=== PATIENT | male | born 1960 | race Two or more races ===

== ENCOUNTER 2025-05-08 15:53 | Inpatient (IN) | payer MEDICAID, OTHER ==
[~2025-05-08] VITALS: Ht 165.1 cm; Wt 90.4 kg
--- NOTE | 2025-05-08 16:16 | ED.PDOC ---
SOB-HPI HPI Comments 65y M who presents to the ED for chief complaint of flu-like symptoms. Pt states he has been having shortness of breath, cough, body aches, and chills for the past 3x days. Pt denies any sick contacts or changes to diet. Pt in the ED, has noted BP of 148/88 with otherwise stable vitals. Pt in the ED, otherwise denies any other symptoms at this time. Chief Complaint: Flu like Time Seen by MD: 16:11 Reviewed notes: Nurses Notes, Medications, Allergies Information Source: Patient Mode of Arrival: Ambulatory Brought in by: self Severity: Moderate Timing: Days Duration: Since onset Context: At Rest PE Risk Factors: None History of: None Prehospital treatment: None Modifying Factors: Exertion Associated Signs and Symptoms: Cough If cough with SOB: Clear Past Medical History PAST MEDICAL HISTORY: CAD, DM, High Lipids, HTN, Liver, Thyroid Surgical History: Appendectomy, CABG, Tonsillectomy Family History Family History: Reviewed,noncontributory to illness Social History Smoker: Non-Smoker Alcohol: Denies ETOH Use Drugs: Denies Drug Use Lives In: Home Constitutional: reports: chills, weakness; denies: diaphoresis, fatigue, fever, malaise, sweats, others EENTM: reports: nose congestion; denies: blurred vision, double vision, ear bleeding, ear discharge, ear drainage, ear pain, ear ringing, eye pain, eye redness, hearing loss, mouth pain, mouth swelling, nasal discharge, nose bleeding, nose pain, photophobia, tearing, throat pain, throat swelling, voice changes, others Respiratory: reports: cough, shortness of breath Cardiovascular: denies: chest pain, dizzy spells, diaphoresis, Dyspnea on exertion, edema, irregular heart beat, left arm pain, lightheadedness, palpi tations, PND, syncope, others Gastrointestinal: denies: abdomen distended, abdominal pain, blood streaked bowels, constipated, diarrhea, dysphagia, difficulty swallowing, hematemesis, melena, nausea, poor appetite, poor fluid intake, rectal bleeding, rectal pain, vomiting, others Genitourinary: denies: burning, dysuria, flank pain, frequency, hematuria, incontinence, penile discharge, penile sore, pain, testicle pain, testicle swelling, urgency, others Neurological: denies: dizziness, fainting, headache, left sided numbness, left sided weakness, numbness, paresthesia, pre-existing deficit, right sided numbness, right sided weakness, seizure, speech problems, tingling, tremors, weakness, others Musculoskeletal: denies: back pain, gout, joint pain, joint swelling, muscle pain, muscle stiffness, neck pain, others Integumetry: denies: bruises, change in color, change in hair/nails, dryness, laceration, lesions, lumps, rash, wounds, others Allergic/Immunocompromised: denies: Difficulty Healing, Frequent Infections, Hives, Itching, others Hematologic/Lymphatic: denies: anemia, blood clots, easy bleeding, easy bruis ing, swollen glands, others Endocrine: denies: excessive hunger, excessive sweating, excessive thirst, exc essive urination, flushing, intolerance to cold, intolerance to heat, unexplained weight gain, unexplained weight loss, others Psychiatric: denies: anxiety, bipolar disorder, depression, hopeless, panic disorder, schizophrenia, sleepless, suicidal, others All Other Systems: Reviewed and Negative Physical Exam General Appearance: Moderate Distress HEENT: Normal ENT Inspection, Pharynx Normal, TMs Normal Neck: Full Range of Motion, Non-Tender, Normal, Normal Inspection Respiratory: Chest Non-Tender, Lungs Clear, No Accessory Muscle Use, Respiratory Distress Cardiovascular: No Edema, No JVD, No Murmur, No Gallop, Normal Peripheral Pulses, Regular Rate/Rhythm Breast Exam: Deferred Gastrointestinal: No Organomegaly, Non Tender, No Pulsatile Mass, Normal Bowel Sounds, Soft Genitalia: Deferred Pelvic: Deferred Rectal: Deferred Extremities: No calf tenderness, Normal capillary refill, Normal inspection, Normal range of motion, Non-tender, No pedal edema Musculoskeletal : Apperance: Normal Neurologic: Alert, manager nursing II-XII nml as Tested, Motor Weakness, Normal Affect, Normal Mood, No Sensory Deficits Cerebellar Function: Normal Reflexes: Normal Skin: Dry, Normal Color, Warm Lymphatic: No Adenopathy EKG EKG : Pulse Rate (adult): 89 [place]: Normal Cardiac Rhythm: NSR Block: None Hypertrophy: RVH ST: Normal Was a procedure done? Was a procedure done?: No Differential Dx Differential Diagnosis: Bronchitis, COPD, Pneumonia, Respiratory Distress, URI Comments influenza A and B, COVID, X-Ray, Labs, Meds, VS Vital Signs Date Time Temp Pulse Resp B/P (MAP) Pulse Ox O2 Delivery O2 Flow Rate FiO2 05/08/25 16:16 89 05/08/25 16:06 89 05/08/25 15:56 98.7 76 18 148/88 97 98.7 Lab Test 05/08/25 17:26 05/08/25 17:25 05/08/25 16:23 Range/Units Influenza Type A Antigen Pending Influenza Type B Antigen Pending SARS-CoV-2 Antigen (Rapid) Pending White Blood Count 10.3 4.4-10.8 10^3/uL Red Blood Count 5.60 4.5-5.90 10^6/uL Hemoglobin 14.9 13.5-17.5 g/dL Hematocrit 43.2 41.0-53.0 % Mean Corpuscular Volume 77.2 L 80.0-100.0 fL Mean Corpuscular Hemoglobin 26.6 L 28.0-32.0 pg Mean Corpuscular Hemoglobin Concent 34.5 32.0-36.0 g/dL Red Cell Distribution Width 15.1 H 11.8-14.3 % Platelet Count 464 H 140-450 10^3/uL Mean Platelet Volume 6.6 L 6.9-10.8 fL Neutrophils (%) (Auto) 62.3 37.0-80.0 % Lymphocytes (%) (Auto) 27.1 10.0-50.0 % Monocytes (%) (Auto) 9.0 0.0-12.0 % Eosinophils (%) (Auto) 0.6 0.0-7.0 % Basophils (%) (Auto) 1.0 0.0-2.0 % Neutrophils # (Auto) 6.4 1.6-8.6 10 ^3/uL Lymphocytes # (Auto) 2.8 0.4-5.4 10 ^3/uL Monocytes # (Auto) 0.9 0-1.3 10 ^3/uL Eosinophils # (Auto) 0.1 0-0.8 10 ^3/uL Basophils # (Auto) 0.1 0-0.2 10 ^3/uL Nucleated Red Blood Cells 0.1 % Sodium Level 140 136-145 mmol/L Potassium Level 3.5 3.5-5.1 mmol/L Chloride Level 102 98-107 mmol/L Carbon Dioxide Level 22 20-31 mmol/L Anion Gap 16 H 5-15 Blood Urea Nitrogen 17 9-23 mg/dL Creatinine 1.14 0.700-1.30 mg/dL Glomerular Filtration Rate Calc 72 >90 mL/min BUN/Creatinine Ratio 14.9 10.0-20.0 Serum Glucose 173 H 74-106 mg/dL Calcium Level 10.1 8.7-10.4 mg/dL PROCEDURE(s): CXRP - CHEST PORTABLE IMPRESSION: 1. Sternal wire sutures in place 2. Prominent bronchovascular markings in the perihilar regions bilaterally. 3. Radiopaque foreign body in the left upper abdomen. Correlate for ingested foreign bodies. The CBC is within normal limits The chemistry panel is within normal limits. The influenza a and influenza B as well as a COVID test are pending The patient is being admitted with a diagnosis of acute respiratory distress Images Reviewed?: Images reviewed and evaluated by me Time of 1ST Reevaluation: 16:40 Reevaluation 1ST: Unchanged Patient Education/Counseling: Diagnosis, Treatment, Prognosis Family Education/Counseling: No Family Present SEPSIS Sepsis Screen Date sepsis recognized/suspect: May 08, 2025 Time Sepsis recognized/suspect: 1556 Recent Procedure: No On Antibiotic Therapy: No Respiratory Rate >20: No Heart Rate >90: No Temp<36 C (96.8 F) or >38.3 C: No SBP <90 or MAP <65 mmHG: No New Acute Mental Status Change: No Is the patient on CPAP, BIPAP,: No Physician Orders Chest Portable (05/08/25 16:08) Urinalysis (05/08/25 16:08) Rapid Influenza A&B (05/08/25 16:08) Covid19 Antigen Camelia (05/08/25 ) Electrocardigram (05/08/25 16:13) Heplock Iv (05/08/25 ) Vital Signs Date Time Temp Pulse Resp B/P (MAP) Pulse Ox O2 Delivery O2 Flow Rate FiO2 05/08/25 16:16 89 05/08/25 16:06 89 05/08/25 15:56 98.7 76 18 148/88 97 98.7 Laboratory Tests Test 05/08/25 16:23 White Blood Count 10.3 10^3/uL (4.4-10.8) Departure 1 Departure Time of Disposition: 17:52 Impression: Primary Impression: Acute respiratory distress Disposition: 09 ADMITTED INPATIENT Admit to: Med Surg Condition: Fair Critical Care Note Critical Care Time?: No Stability Stability form required: Yes Unstable for transfer: ED Physician Assesment (Clinical assesment) Heart Score Heart Score: Heart Score Response (Comments) Value History Slightly Suspicious 0 EKG Normal 0 Age 45-64 1 Risk Factors >3 or Hx ASHD 2 Troponin Normal limit 0 Total 3 I personally scribed for TING RODRIGES MD ([email or web address]) on 05/08/25 at 16:16. Electronically submitted by Ciara Morales ([employer]). I personally scribed for TING RODRIGES MD ([email or web address]) on 05/08/25 at 17:17. Electronically submitted by Ciara Morales ([employer]). TING RODRIGES MD May 08, 2025 16:16
[2025-05-08 16:33] LABS: Hemoglobin 14.9 g/dL (13.5-17.5); Nucleated Red Blood Cells % 0.1 %
[2025-05-08 16:35] LABS: Hematocrit 43.2 % (41.0-53.0); Mean Corpuscular Hemoglobin 26.6 pg (28.0-32.0); Mean Corpuscular Volume 77.2 fL (80.0-100.0)
[2025-05-08 16:40] LABS: Chloride 102 mmol/L (98-107); Potassium 3.5 mmol/L (3.5-5.1); Sodium 140 mmol/L (136-145)
[2025-05-08 16:41] LABS: Anion Gap 16 (5-15); Carbon Dioxide 22 mmol/L (20-31)
[2025-05-08 16:42] LABS: Calcium 10.1 mg/dL (8.7-10.4)
[2025-05-08 16:47] LABS: BUN/Creatinine Ratio 14.9 (10.0-20.0); Blood Urea Nitrogen 17 mg/dL (9-23)
--- NOTE | 2025-05-08 16:49 | DVH ---
CHEST RADIOGRAPH Indication: pain Technique: Single frontal view of the chest was obtained Comparison: None FINDINGS: Lines and Tubes: None Lungs: No focal consolidation. Prominent bronchovascular markings in the perihilar regions bilaterally. Pleura: No effusion. No pneumothorax. Cardiomediastinal contours: Unremarkable Bones: No acute osseous abnormality. IMPRESSION: 1. Sternal wire sutures in place 2. Prominent bronchovascular markings in the perihilar regions bilaterally. 3. Radiopaque foreign body in the left upper abdomen. Correlate for ingested foreign bodies.
[2025-05-08 16:51] LABS: Glucose 173 mg/dL (74-106)
[2025-05-08 18:13] LABS: COVID19 ANTIGEN SOFIA FIA NEGATIVE (NEGATIVE)
[2025-05-08] MEDS ORDERED: ACETAMINOPHEN 325 MG TAB PO PRN (18:45)
[2025-05-08] MEDS ORDERED: MORPHINE SULFATE INJ 2 MG/ml SYRG IV PRN (18:45)
[2025-05-08] MEDS ORDERED: NITROGLYCERIN 0.4 MG SL TAB SL PRN (18:45)
[2025-05-08 18:53] LABS: Urine Protein, UAD 1+ (Negative)
--- NOTE | 2025-05-08 18:57 | DVHHP2 ---
Admitting Diagnosis: Suspect RLL pneumonia Acute flu syndrome Severe hypovolemia History of Present Illness 65-year-old middle-aged male with known prior history of CAD, Status post CABG, uncontrolled NIDDM and hypertension who is admitted through ER for further eval and management of signs symptoms of Upper respiratory congestion, maxillary sinusitis,, low-grade fever chills Nausea vomiting and generalized aches and pains over past three days Patient denies exposure to a family member with similar symptoms He was noted to be sick, hyperventilating with profound generalized weakness, severe hypovolemia. Physical exam reflective of reduced Breath sounds, dull percussion noted over right lower lobe raised concern about RLL pneumonia. Considering patient being immunocompromised from Current history of coronary artery disease, status post CABG and uncontrolled Diabetes, I recommended patient to receive hospitalization and refer patient to ER of this facility. Upon arrival to ER, patient appeared to be Allergies: Coded Allergies: NO KNOWN ALLERGIES (Unverified , 05/08/25) Home Meds Reported Medications Oxycodone Hcl (OXYCODONE HCL) 5 Mg Tb, 5 MG GT, TAB 05/09/25 Insulin Lispro (Human) (Humalog) 100 Unit/Ml Inj, 100 UNIT SC, INJ 05/09/25 Calcium Carbonate (Calcium) 600 Mg Tab, 600 MG PO, TAB 05/09/25 Aspirin (Aspir-81) 81 Mg Tab, 1 TAB PO DAILY, #30 TAB 5 Refills 05/09/25 Amlodipine Besylate (Amlodipine Besylate) 5 Mg Tab, 1 TAB PO DAILY, #30 TAB 5 Refills 05/09/25 Glyburide (Micronase) 5 Mg Tb, 1 TAB PO BID, #60 TAB 5 Refills 05/09/25 Metoprolol Succinate (Metoprolol Succinate Er) 25 Mg Tab, 1 TAB PO DAILY, #30 TAB 5 Refills 05/09/25 Current Medications Review of Systems Constitutional: Reports easy tiredness, fever chills denies weight loss HEENT: Reports bifrontal headache, bilateral maxillary sinus congestion, Denies hoarse voice, hearing or visual deficit Neck: Denies cervical spine local/radicular pains, denies goiters/stridor Denies stiffness spasms, reduced ROM, RS: Reports chest congestion, cough, wheezing, SOB, pleuritic chest pains CVS: Denies angina, palpitation, SOB, edema, orthopnea, PND GI: Reports loss of appetite, abdominal pains, tenderness, Reports nausea vomiting Denies melena, GI bleeding,consti pation, : Denies dysuria, flank pains, frequency, hematuria, Denies passing foul odor/cloudy turbid urine, nocturia MS: Denies generalized aches/pains, back pains, spasms, stiffness, Denies radicular pains, denies generalized myalgias/muscle weakness EXTs: Denies edema, rash, open wounds, discoloration, radicular pains NEURO: Denies hypersomnolence, confused mental status, Denies focal weakness or seizures/tremors/myoclonic jerks SKIN: Denies rashes or open ulcerated wound ENDOCRINE: Denies polyuria, polydipsia, denies intolerance to heat and cold HEM/LYMPH: Denies easy tiredness, bruising, lymphadenopathy ALLERGY: Denies allergic reactions Psychiatry: Denies anxiety or depression disorder Otherwise the Review of Systems is Negative as per History & Physical Interview: Yes Vital Signs Vital Signs Date Time Temp Pulse Resp B/P (MAP) Pulse Ox O2 Delivery O2 Flow Rate FiO2 05/10/25 22:29 98 Room Air* 0 21 05/10/25 21:43 91 144/92 05/10/25 21:00 98.4 17 98.4 Physical Exam General appearance: Short stature, obese to his keeping middle-aged male Appears profound generalized weakness, hypoventilation Drowsy but easily awakenable oriented x3 Head: Normocephalic nontraumatic Eyes: EOMI, TEOFILO, sclera nonicteric, conjunctive- pale ENT: Bilateral maxillary sinus congestion, erythema and tenderness NSL bilateral symmetrical, oral mucosa dry +2 Neck: Supple, carotid upstroke +2, trachea R midline, JVD-0 cm, C spine- Full ROM No thyroid or lymph node , no use of sternomastoid muscle Chest: Bilateral symmetrical expansions, no costoch ondral tenderness Emphysematous Lungs: clear breath sounds all over except reduced at R base> L Bronchial breathing and percussion note dull at RLL CVS: PMI-2 cm lateral to L MCL in fifth ICS , S1- S2 NSR no S3 GI: Abdomen soft, obese, bowel sounds hyper active Epigastric tenderness, no rebound tenderness No hepatosplenomegaly, no mass no hernia , : No CVA tenderness, no bladder mass palpable, genitalia-NE SKIN: Turgor dry, color pink, no rash, no icterus, No varicosity, no ulcers or wounds EXTs: No edema, color pink, no rash, no ecchymosis distal pulses +1 capillary refill >2 seconds, No open wounds JOINTS; changes of osteoarthritis at bilateral hip and knees BACK: No apparent lumbosacral spinal muscle tenderness, LYMPH NODES: No cervical, axillary or inguinal lymph nodes Neuro: Awake alert oriented 4, coherent, all cognitives- intact No pronator drift, no focal motor deficit, Changes of diabetic peripheral neuropathy, DTR +2, gait wide require assistance PSYCH: Affect mixed-denies suicidal ideation SEPSIS Sepsis Screen Date sepsis recognized/suspect: May 08, 2025 Time Sepsis recognized/suspect: 1555 Recent Procedure: No On Antibiotic Therapy: No Respiratory Rate >20: No Heart Rate >90: No Temp<36 C (96.8 F) or >38.3 C: No SBP <90 or MAP <65 mmHG: No New Acute Mental Status Change: No Is the patient on CPAP, BIPAP,: No Physician Orders Chest Portable (05/08/25 16:08) Electrocardigram (05/08/25 16:13) Heplock Iv (05/08/25 ) Admit (05/08/25 18:31) Nitroglycerin Sublingual (Ntrostat Subli (05/08/25 18:45) Morphine Sulfate Injection (05/08/25 18:45) Stat Ekg For Chest Pain (05/08/25 18:31) Notify Md Of Changes From Base (05/08/25 18:31) Clerk Rating For 24 Hours (05/08/25 18:31) Emergency Dysrhythmia Protocol (05/08/25 18:31) Rhythm Strips Once Every Shift (05/08/25 18:31) Oxygen By Nasal Cannula (05/08/25 18:31) Valsartan (Diovan) (05/09/25 08:00) Metoprolol Xl Succinate (Toprol Xl) (05/08/25 22:00) Atorvastatin (Lipitor) (05/09/25 17:30) Aspirin Enteric Coated Tablet (Ecotrin E (05/09/25 17:30) Enoxaparin Sodium (Lovenox) (05/09/25 10:00) Insulin Lispro (Human) (Humalog) (05/09/25 07:00) Insulin Lispro (Human) (Humalog) (05/08/25 22:00) Insulin Lantus (Glargine) (Lantus) (05/08/25 22:00) Acetaminophen Tablet (Tylenol Tablet) (05/08/25 18:45) Albuterol Medneb (Ventolin Medneb) (05/08/25 19:00) Urine Bacterial Culture (05/08/25 18:51) Blood Culture (05/08/25 18:51) Blood Culture (05/09/25 18:51) Respiratory Culture W/ Gs (05/08/25 18:51) Ondansetron Hcl (Zofran) (05/09/25 00:15) Pantoprazole Tablet (Protonix Tablet) (05/09/25 06:00) Oxycodone W/ Acet 5/325mg Tab (Percocet (05/09/25 00:15) Chest Portable (05/09/25 07:25) Sod Chl 0.45% (Sodium Chloride 0.45% Via (05/09/25 21:15) Consistent Carb(Ccho)Diabetes (05/10/25 Breakfast) Ceftriaxone 1gm/50ml (Rocephin) (05/11/25 08:00) Vital Signs Date Time Temp Pulse Resp B/P (MAP) Pulse Ox O2 Delivery O2 Flow Rate FiO2 05/10/25 22:29 98 Room Air* 0 21 05/10/25 22:29 98 Room Air 0.0 05/10/25 21:43 91 144/92 05/10/25 21:00 98.4 91 17 144/92 (109) 98 98.4 05/10/25 16:57 97.6 74 17 124/84 (97) 99 97.6 05/10/25 13:00 97.2 88 16 138/60 (86) 97 97.2 05/10/25 09:42 97 Room Air* 0 21 05/10/25 09:42 97 Room Air 0.0 05/10/25 09:18 76 124/78 05/10/25 09:16 124/78 05/10/25 09:00 97.4 76 18 124/78 (93) 98 97.4 05/10/25 08:00 81 05/10/25 08:00 98 Room Air* 0 05/10/25 06:10 153/86 05/10/25 05:00 97.8 79 18 153/86 (108) 99 97.8 05/10/25 01:00 97.8 81 18 140/77 (98) 96 97.8 05/09/25 22:10 84 153/91 05/09/25 21:00 97.8 84 18 153/91 (111) 99 97.8 05/09/25 20:00 84 18 99 Room Air* 0 05/09/25 20:00 93 05/09/25 17:00 97.6 87 18 136/78 (97) 98 97.6 05/09/25 13:00 97.1 86 19 150/82 (104) 98 97.1 05/09/25 10:00 96 Room Air 0.0 05/09/25 10:00 96 Room Air* 0 05/09/25 09:00 97.3 73 17 158/79 (105) 96 97.3 05/09/25 08:35 91 142/76 05/09/25 08:35 142/76 05/09/25 08:00 Room Air* 0 05/09/25 08:00 93 05/09/25 07:57 92 Room Air* 0 05/09/25 07:57 92 Room Air 0.0 05/09/25 05:00 98.0 108 18 158/100 (119) 99 98.0 05/08/25 23:55 97.5 98 19 151/91 (111) 100 97.5 05/08/25 23:55 98 18 Room Air* 0 05/08/25 23:09 98.1 101 20 92/68 (76) 99 98.1 05/08/25 22:00 101 92/68 05/08/25 21:26 97.7 102 20 115/95 99 0.0 21 97.7 05/08/25 20:20 100 20 100 05/08/25 20:14 99 Room Air 0.0 05/08/25 20:14 99 Room Air* 0 05/08/25 20:14 102 20 99 05/08/25 20:05 117 22 98 Room Air* 0 21 05/08/25 20:04 97.9 117 22 115/95 (102) 98 97.9 05/08/25 16:16 89 05/08/25 16:06 89 05/08/25 15:56 98.7 76 18 148/88 97 98.7 Laboratory Tests Test 05/08/25 16:23 05/09/25 05:11 White Blood Count 10.3 10^3/uL (4.4-10.8) 10.7 10^3/uL (4.4-10.8) Results Labs Test 05/10/25 21:09 05/09/25 05:11 05/08/25 18:37 05/08/25 17:26 Range/Units POC Glucose 163 H 70-106 mg/dl White Blood Count 10.7 4.4-10.8 10^3/uL Red Blood Count 5.51 4.5-5.90 10^6/uL Hemoglobin 14.7 13.5-17.5 g/dL Hematocrit 43.0 41.0-53.0 % Mean Corpuscular Volume 78.0 L 80.0-100.0 fL Mean Corpuscular Hemoglobin 26.7 L 28.0-32.0 pg Mean Corpuscular Hemoglobin Concent 34.3 32.0-36.0 g/dL Red Cell Distribution Width 15.1 H 11.8-14.3 % Platelet Count 451 H 140-450 10^3/uL Mean Platelet Volume 7.1 6.9-10.8 fL Neutrophils (%) (Auto) 67.3 37.0-80.0 % Lymphocytes (%) (Auto) 23.6 10.0-50.0 % Monocytes (%) (Auto) 8.1 0.0-12.0 % Eosinophils (%) (Auto) 0.3 0.0-7.0 % Basophils (%) (Auto) 0.7 0.0-2.0 % Neutrophils # (Auto) 7.2 1.6-8.6 10 ^3/uL Lymphocytes # (Auto) 2.5 0.4-5.4 10 ^3/uL Monocytes # (Auto) 0.9 0-1.3 10 ^3/uL Eosinophils # (Auto) 0 0-0.8 10 ^3/uL Basophils # (Auto) 0.1 0-0.2 10 ^3/uL Nucleated Red Blood Cells 0.1 % Sodium Level 140 136-145 mmol/L Potassium Level 3.5 3.5-5.1 mmol/L Chloride Level 101 98-107 mmol/L Carbon Dioxide Level 25 20-31 mmol/L Anion Gap 14 5-15 Blood Urea Nitrogen 17 9-23 mg/dL Creatinine 1.24 0.700-1.30 mg/dL Glomerular Filtration Rate Calc 65 >90 mL/min BUN/Creatinine Ratio 13.7 10.0-20.0 Serum Glucose 146 H 74-106 mg/dL Hemoglobin A1c 7.4 H <5.7 % A1C Calcium Level 9.6 8.7-10.4 mg/dL Total Bilirubin 0.4 0.2-1.0 mg/dL Aspartate Amino Transferase (AST) 25 13-40 U/L Alanine Aminotransferase (ALT) 21 7-40 U/L Alkaline Phosphatase 70 46-116 U/L Total Protein 7.6 5.7-8.2 g/dL Albumin 4.1 3.2-4.8 g/dL Triglycerides Level 151 H < 150 mg/dL Cholesterol Level 228 H < 200 mg/dL LDL Cholesterol 168 H < 100 mg/dL HDL Cholesterol 44 40-59 mg/dL Urine Color Yellow Yellow Urine Clarity Turbid H Clear Urine pH 5.5 5.0-9.0 Urine Specific [place] 1.030 1.001-1.035 Urine Protein 1+ H Negative Urine Ketones 1+ H Negative Urine Blood Negative Negative /uL Urine Nitrite Negative Negative Urine Bilirubin Negative Negative Urine Urobilinogen 3 H Negative mg/dL Urine Leukocyte Esterase Negative Negative /uL Urine RBC 1 0 - 3 /hpf Urine Microscopic WBC 3 0-3 /HPF Urine Squamous Epithelial Cells Few <5 /hpf Urine Bacteria None seen None Seen /hpf Urine Hyaline Casts Mod 0 - 2 /lpf Urine Mucus Few None Seen Urine Glucose 2+ H Normal mg/dL Influenza Type A Antigen Negative Negative Influenza Type B Antigen Negative Negative Test 05/08/25 17:25 05/08/25 16:23 Range/Units SARS-CoV-2 Antigen (Rapid) Negative NEGATIVE Phosphorus Level 1.8 L 2.4-5.1 mg/dL Magnesium Level 1.5 L 1.6-2.6 mg/dL Microbiology Date/Time Source Procedure Growth Status 05/09/25 19:06 Blood Blood Culture - Preliminary NO GROWTH AFTER 24 HOURS OF INCUBATION. Resulted 05/08/25 18:37 Voided Urine Urine Culture - Preliminary Resulted Primary Diagnosis Suspect R lower lobe pneumoniae +/-sepsis Acute flu syndrome Admitting Diagnosis: Suspect R LL pneumonia-rule out sepsis Acute Flu syndrome Acute gastroenteritis Severe hypovolemia Uncontrolled NIDDM 2' Diagnosis/Comorbidities Fairly well-controlled hypertension Exogenous obesity with current BMI > 30-35 kilogram/meters squared Chronic back pains and narcotic dependence Plan Admit to medical floor with telemetry Obtain serial EKGs and enzymes 12 EKG as needed with chest pain FiO2 2 L via nasal cannula Recommended sublingual nitroglycerin, and parenteral morphine for angina Recommended metoprolol /Coreg as beta blockers and lisinopril as SHARIFA inhibitor or Valsartan as ARBS for management of hypertension Recommended statin based cholesterol-lowering agent and Ecotrin Recommended antiplatelet agents like Plavix and Lovenox Recommended anxiolytic medication Recommended Percocet for headache due to sublingual nitro Reconcile home medication IV hydration with hypotonic saline for hypovolemia Cardiology consult with Dr. Victor Manuel Malagon 2-D echocardiogram to be read by Dr. Victor Manuel Malagon Lexiscan Cardiolite stress EKG test if indicated VTE precautions Update the patient's condition to patient-done hypovolemic NG-tube Plan discussed with: Patient Code Visit Code Visit Total Time (mins): 120 JEROME JONES MD May 08, 2025 18:57
[2025-05-08 20:05] VITALS: PULSE 117; RESP 22; O2SAT 98
[2025-05-08 20:14] VITALS: PULSE 102; RESP 20; O2SAT 99
[2025-05-08] MEDS: ALBUTEROL SULF 2.5 MG/0.5ML(0.5%) NEB SOLN NEB PRN (20:14)
[2025-05-08 20:20] VITALS: PULSE 100; RESP 20; O2SAT 100
[2025-05-08 21:26] VITALS: BP 115/95; PULSE 102; RESP 20; TEMP 97.7; O2SAT 99
[2025-05-08] MEDS: INSULIN LANTUS (GLARGINE) 1 /0.01ml (100units/ml) SC SCH (22:00)
[2025-05-08] MEDS: INSULIN LISPRO (HUMAN) 100 UNITS/ML ML SC SCH (22:00)
[2025-05-08] MEDS: METOPROLOL SUCCINATE XL 50 MG TAB PO SCH (22:00)
[2025-05-08 23:55] VITALS: BP 151/91; PULSE 98; RESP 18; RESP 19; TEMP 97.5; O2SAT 100
[2025-05-09] VITALS (9 sets, daily range): BP systolic 136–158; BP diastolic 78–100; PULSE 73–108; RESP 17–19; TEMP 97.1–98; O2SAT 92–99
[2025-05-09] MEDS: ONDANSETRON HCL 4 MG/2 ML VIAL IV PRN (00:40)
[2025-05-09] MEDS: SODIUM CHLORIDE 0.9% 1,000 ML IV ONE (00:40)
[2025-05-09] MEDS ORDERED: METO25TA93 PO (00:41)
[2025-05-09] MEDS: OXYCODONE W/ ACETAMINOPHEN 5/325MG TABLET PO PRN (00:41)
[2025-05-09] MEDS ORDERED: GLYB5TAB9 PO (00:41)
[2025-05-09] MEDS ORDERED: ASPI1TAB20 PO (00:57)
[2025-05-09] MEDS ORDERED: OXY5T GT (00:57)
[2025-05-09] MEDS ORDERED: AMLO1TAB22 PO (00:57)
[2025-05-09] MEDS ORDERED: INSLISPI SC (00:57)
[2025-05-09] MEDS ORDERED: CALC1TAB92 PO (00:57)
--- NOTE | 2025-05-09 05:49 | DVH ---
CHEST RADIOGRAPH Indication: rll PNEUMONIA Technique: Single frontal view of the chest was obtained Comparison: XY CHEST PORTABLE on DOS: 05/08/25 FINDINGS: Lines and Tubes: None Lungs: Decreased interstitial prominence. Pleura: No effusion. No pneumothorax. Cardiomediastinal contours: Cardiomegaly. Bones: No acute osseous abnormality. Status post CABG. IMPRESSION: 1. Decreased interstitial prominence suggesting decreased pulmonary congestion.
[2025-05-09] MEDS: INSULIN LISPRO (HUMAN) 100 UNITS/ML ML SC SCH (06:24)
[2025-05-09] MEDS: PANTOPRAZOLE 40 MG TAB PO SCH (06:24)
[2025-05-09 07:20] LABS: Hematocrit 43.0 % (41.0-53.0); Hemoglobin 14.7 g/dL (13.5-17.5); Mean Corpuscular Hemoglobin 26.7 pg (28.0-32.0); Mean Corpuscular Volume 78.0 fL (80.0-100.0); Nucleated Red Blood Cells % 0.1 %
[2025-05-09 07:30] LABS: Alanine Aminotransferase 21 U/L (7-40); Albumin 4.1 g/dL (3.2-4.8); Alkaline Phosphatase 70 U/L (46-116); Anion Gap 14 (5-15); BUN/Creatinine Ratio 13.7 (10.0-20.0); Bilirubin, Total 0.4 mg/dL (0.2-1.0); Blood Urea Nitrogen 17 mg/dL (9-23); Calcium 9.6 mg/dL (8.7-10.4); Carbon Dioxide 25 mmol/L (20-31); Chloride 101 mmol/L (98-107); Cholesterol 228 mg/dL (< 200); Glucose 146 mg/dL (74-106); HDL Cholesterol 44 mg/dL (40-59); Potassium 3.5 mmol/L (3.5-5.1); Sodium 140 mmol/L (136-145); Total Protein 7.6 g/dL (5.7-8.2); Triglycerides 151 mg/dL (< 150)
[2025-05-09] MEDS: VALSARTAN 80 MG TAB PO SCH (08:35)
[2025-05-09] MEDS: ENOXAPARIN SOD 60 MG/0.6 ML SYRINGE SC SCH (08:37)
[2025-05-09] MEDS: ASPirin-EC 81 mg tab PO SCH (16:04)
[2025-05-09] MEDS: ATORVASTATIN 20 MG TAB PO SCH (16:04)
--- NOTE | 2025-05-09 21:17 | DVHPN2 ---
Progress Note - Dictate Date Seen: May 09, 2025 Medical Necessity Reason Medical Necessity Reason IV Antibiotics IV fluids Eval for CHF Subjective The patient is currently being treated for acute flu syndrome, acute gastroenteritis * He reports significant improvement in GI symptoms * We will start patient on regular diet by tomorrow morning * Also noted puffiness of bilateral lower extremities from possible fluid overload * Recommended IV diuretics Overnight events are reviewed through medical chart and case discussion with patient's assigned RN Ms. Forbes while making rounds on patient on the day of service vital signs Vital Sign Date Time Temp Pulse Resp B/P (MAP) Pulse Ox O2 Delivery O2 Flow Rate FiO2 05/09/25 17:00 97.6 87 18 136/78 (97) 98 97.6 05/09/25 10:00 Room Air 0.0 05/09/25 10:00 21 Total Intake and Output 05/08/25 05/08/25 05/09/25 15:00 23:00 07:00 Intake Total 450 ml Balance 450 ml medications Current Medications Medications Dose Ordered Sig/Alaina Route Start Time Stop Time Status Last Admin Dose Admin Nitroglycerin 0.4 mg Q5MINP PRN SL 05/08/25 18:45 Morphine Sulfate 2 mg Q30M PRN IV 05/08/25 18:45 Valsartan 160 mg DAILY@BREAKFAST PO 05/09/25 08:00 05/09/25 08:35 160 MG Metoprolol Succinate 25 mg BID PO 05/08/25 22:00 05/09/25 08:35 25 MG Atorvastatin Calcium 40 mg DAILY@DINNER PO 05/09/25 17:30 05/09/25 16:04 40 MG Aspirin 81 mg DAILY@DINNER PO 05/09/25 17:30 05/09/25 16:04 81 MG Enoxaparin Sodium 60 mg DAILY SC 05/09/25 10:00 05/09/25 08:37 60 MG Ceftriaxone Sodium 50 ml @ 100 mls/hr BID IV 05/08/25 22:00 05/09/25 08:37 100 MLS/HR Insulin Human Lispro AC SC 05/09/25 07:00 05/09/25 06:24 3 UNITS Insulin Human Lispro HS SC 05/08/25 22:00 Insulin Glargine 15 units BID SC 05/08/25 22:00 05/09/25 08:48 15 UNITS Acetaminophen 650 mg QIDP PRN PO 05/08/25 18:45 Albuterol 2.5 mg Q6H PRN NEB 05/08/25 19:00 05/08/25 20:14 2.5 MG Ondansetron HCl 4 mg Q6HPRN PRN IV 05/09/25 00:15 05/09/25 00:40 4 MG Pantoprazole Sodium 40 mg BID@0600,1700 PO 05/09/25 06:00 05/09/25 16:04 40 MG Oxycodone/ Acetaminophen 1 tab Q6HP PRN PO 05/09/25 00:15 05/09/25 19:56 1 TAB Sodium Chloride 1,000 ml @ 30 mls/hr Q24H IV 05/09/25 21:15 UNV objective General appearance: Short stature, obese to husky built middle-aged male Awake alert oriented x3-no sign of apnea/hypoventilation no respiratory distress Head: Normocephalic nontraumatic Eyes: EOMI, TEOFILO, sclera nonicteric, conjunctive- pale ENT: Improvement in ENT congestion, NSL bilateral symmetrical, oral mucosa wet Neck: Supple, carotid upstroke +2, trachea R off midline, JVD-1 cm, C spine- Full ROM No thyroid or lymph node , no use of sternomastoid muscle Chest: Bilateral symmetrical expansions, No costochondral tenderness Lungs: clear breath sounds all over except reduced at bases CVS: PMI-2 cm lateral to L MCL in fifth ICS , S1- S2 NSR no S3 GI: Abdomen soft, obese, bowel sounds normoactive No focal tenderness, no rebound tenderness No hepatosplenomegaly, no mass no hernia , : No CVA tenderness, Para LS spine muscle tenderness present No bladder mass palpable, genitalia-NE SKIN: Turgor normal, color pink, no rash, no icterus, No varicosity, no ulcers or wounds EXTs: Puffiness +2, color pink, no rash, no ecchymosis Distal pulses +2 capillary refill <2 seconds, no open wounds JOINTS: changes of osteoarthritis present BACK: No apparent lumbosacral spinal muscle tenderness, LYMPH NODES: No cervical, axillary or inguinal lymph nodes Neuro: Awake alert oriented 4, coherent, all cognitives- intact No pronator drift, no focal motor deficit, Changes of peripheral neuropathy, DTR +2, gait wide PSYCH: Affect mixed-denies suicidal ideation laboratory and microbiology Laboratory Tests 05/09/25 05:11 Test 05/09/25 05:11 Range/Units Serum Glucose 146 H 74-106 mg/dL ORDERING PHYSICIAN: JEROME JONES MD PROCEDURE(s): CXRP - CHEST PORTABLE REASON: rll PNEUMONIA ORDER NUMBER(s): [id number], ACCESSION NUMBER(s): [id number] CHEST RADIOGRAPH Indication: rll PNEUMONIA Technique: Single frontal view of the chest was obtained Comparison: XY CHEST PORTABLE on DOS: 05/08/25 FINDINGS: Lines and Tubes: None Lungs: Decreased interstitial prominence. Pleura: No effusion. No pneumothorax. Cardiomediastinal contours: Cardiomegaly. Bones: No acute osseous abnormality. Status post CABG. IMPRESSION: 1. Decreased interstitial prominence suggesting decreased pulmonary congestion. Problem List 1. Acute Flu syndrome................................ Improving 2. Acute gastroenteritis........................ Significantly improving 3. Moderately severe hypovolemia............ Almost corrected 4. Early CHF VS fluid overload 5. Well-controlled hypertension 6. Uncontrolled NIDDM 7. Exogenous obesity in adult with current BMI> 30-35 kg/m2 Assessment/Plan Medical decision making Overall patient's general/hemodynamic condition seems to be improving and Stabilizing as patient is responding to current measures for acute flu syndrome * Noted significant improvement in state of ENT congestion, tachypnea and hyperventilation * Noted improvement in signs of hypoventilation at bilateral lung bases * His chest x-ray shows diminished congestion * Noted bilateral peripheral edema signs of early congestive heart failure * Recommended patient to receive cautious IV hydration with IV diuretics * Recommended patient to receive 2D echo exam-patient has recently received CABG middle of this year Treatment plans as of today Continue hospital stay at telemetry floor Replace IV 0.9 normal saline by half-normal saline Continue IV Rocephin Reviewed chest x-ray with patient Recommend 2D echo exam Recommend IV Lasix in the morning Place patient on regular diet-include replacing full liquids VTE precautions Update patient The patient and/or family is well informed by me about 1. Clinical impression, treatment plans, side effects of medications, course of the disease and fair prognosis 2. All patient's question/ concerns raised by patient are satisfactorily addressed by me Total time spent 45 minutes 40% of time spent interviewing the patient and physical exam 30% of time spent in gathering lab datas and imaging studies 30 % of time is spent in patient education Prognosis Fair Dietary Evaluation Review Recommendations by RD: Dietary education by RD, Decrease Calorie Intake Comments: Recommended intentional weight loss of 50 lb as from current body weight Through 1800 calorie ADA diet and aerobic exercises as tolerated Recommends test and a bike exercises once recovers from current illness Expected Outcomes/Goals: Goal is to avoid obesity related comorbidities such as Obesity hypoventilation, cardiac arrhythmia, embolic events, CVA, or sudden Food and Nutrition Intake (Mod: <75% est energy req 7days Food and Nutrition Intake (Sev: <50% est energy req 5days Interpretation of weight loss: up to 10% in 6 months Plan discussed with: Patient Total Time (mins): 45 JEROME JONES MD May 09, 2025 21:17
[2025-05-09] MEDS: SOD CHL 0.45% 1,000 ML IV SCH (22:09)
[2025-05-10] VITALS (10 sets, daily range): BP systolic 124–153; BP diastolic 60–92; PULSE 74–91; RESP 16–18; TEMP 97.2–98.4; O2SAT 96–99
[2025-05-10] MEDS: FUROSEMIDE 20 MG/2 ML VIAL IV ONE (06:10)
--- NOTE | 2025-05-10 23:39 | DVHPN2 ---
Progress Note - Dictate Date Seen: May 10, 2025 Medical Necessity Reason Medical Necessity Reason IV antibiotics IV fluids IV diuretics Subjective The patient reports to have improvement in his current symptoms of Upper respiratory tract/lower respiratory congestion shortness of breath Denies symptoms of nausea vomiting or diarrhea * Received IV diuretic for signs of early CHF * Continued on IV antibiotics Overnight events are reviewed through medical chart and case discussion with patient's assigned RN while making rounds on patient on the day of service vital signs Vital Sign Date Time Temp Pulse Resp B/P (MAP) Pulse Ox O2 Delivery O2 Flow Rate FiO2 05/10/25 22:29 98 Room Air* 0 21 05/10/25 21:43 91 144/92 05/10/25 21:00 98.4 17 98.4 Total Intake and Output 05/09/25 05/09/25 05/10/25 15:00 23:00 07:00 Intake Total 430 ml 510 ml 900 ml Output Total 325 ml 2 ml 550 ml Balance 105 ml 508 ml 350 ml medications Current Medications Medications Dose Ordered Sig/Alaina Route Start Time Stop Time Status Last Admin Dose Admin Nitroglycerin 0.4 mg Q5MINP PRN SL 05/08/25 18:45 Morphine Sulfate 2 mg Q30M PRN IV 05/08/25 18:45 Valsartan 160 mg DAILY@BREAKFAST PO 05/09/25 08:00 05/10/25 09:16 160 MG Metoprolol Succinate 25 mg BID PO 05/08/25 22:00 05/10/25 21:43 25 MG Atorvastatin Calcium 40 mg DAILY@DINNER PO 05/09/25 17:30 05/10/25 17:59 40 MG Aspirin 81 mg DAILY@DINNER PO 05/09/25 17:30 05/10/25 17:59 81 MG Enoxaparin Sodium 60 mg DAILY SC 05/09/25 10:00 05/10/25 09:15 60 MG Ceftriaxone Sodium 50 ml @ 100 mls/hr BID IV 05/08/25 22:00 05/10/25 21:43 100 MLS/HR Insulin Human Lispro AC SC 05/09/25 07:00 05/09/25 06:24 3 UNITS Insulin Human Lispro HS SC 05/08/25 22:00 05/10/25 21:37 4 UNITS Insulin Glargine 15 units BID SC 05/08/25 22:00 05/10/25 21:35 15 UNITS Acetaminophen 650 mg QIDP PRN PO 05/08/25 18:45 Albuterol 2.5 mg Q6H PRN NEB 05/08/25 19:00 05/08/25 20:14 2.5 MG Ondansetron HCl 4 mg Q6HPRN PRN IV 05/09/25 00:15 05/09/25 00:40 4 MG Pantoprazole Sodium 40 mg BID@0600,1700 PO 05/09/25 06:00 05/10/25 17:59 40 MG Oxycodone/ Acetaminophen 1 tab Q6HP PRN PO 05/09/25 00:15 05/10/25 19:12 1 TAB Sodium Chloride 1,000 ml @ 30 mls/hr Q24H IV 05/09/25 21:15 05/09/25 22:09 30 MLS/HR objective General appearance: Short stature, obese to husky built middle-aged male Awake alert oriented x3 no respiratory distress Head: Normocephalic nontraumatic Eyes: EOMI, TEOFILO, sclera nonicteric, conjunctive- pale ENT: Mild ENT congestion, NSL bilateral symmetrical, oral mucosa wet Neck: Supple, carotid upstroke +2, trachea R off midline, JVD-1 cm, C spine- Full ROM No thyroid or lymph node , no use of sternomastoid muscle Chest: Bilateral symmetrical expansions, No costochondral tenderness Lungs: clear breath sounds all over except reduced at bases CVS: PMI-2 cm lateral to L MCL in fifth ICS , S1- S2 NSR no S3 GI: Abdomen soft, obese, bowel sounds normoactive No focal tenderness, no rebound tenderness No hepatosplenomegaly, no mass no hernia , : No CVA tenderness, Para LS spine muscle tenderness present No bladder mass palpable, genitalia-NE SKIN: Turgor normal, color pink, no rash, no icterus, No varicosity, no ulcers or wounds EXTs: No edema, color pink, no rash, no ecchymosis Distal pulses +2 capillary refill <2 seconds, no open wounds JOINTS: changes of osteoarthritis present BACK: No apparent lumbosacral spinal muscle tenderness, LYMPH NODES: No cervical, axillary or inguinal lymph nodes Neuro: Awake alert oriented 4, coherent, all cognitives- intact No pronator drift, no focal motor deficit, Changes of peripheral neuropathy, DTR +2, gait wide PSYCH: Affect mixed-denies suicidal ideation laboratory and microbiology Laboratory Tests 05/09/25 05:11 Test 05/09/25 05:11 Range/Units Serum Glucose 146 H 74-106 mg/dL Problem List 1. Early Systolic CHF 2. Acute flu Syndrome.............................................. Significantly improving 2. Acute gastroenteritis............................................. Significantly improved 3. Moderately severe hypovolemia................................ Corrected 4. Fairly well-controlled NIDDM 5. W admit ell-controlled hypertension 6. Exogenous obesity in adult with current BMI > 30-35 kg/m2 Assessment/Plan Medical decision making Patient seems to be recovering from acute flu syndrome, acute gastroenteritis, Cardiopulmonary congestion and moderately severe hypovolemia * Continued patient on IV antibiotics * Continued patient on cautious IV hydration * Noted patient was able to tolerate oral intake of cardiac ADA diet * Noted good control of hypertension with antihypertensives * Noted fair control of NIDDM-dose of injection Lantus has been adjusted * Recommended ADA 1800 calorie low-salt 2 g diet * Responded to IV diuretics good urine output * Recommended 2D echo exam Treatment plans as of today Continue hospital stay at telemetry bed Continue IV hydration Continue IV Rocephin Continue oral narcotic analgesics Continue antihypertensives, statins and diuretic Adjust dose of injection Lantus Continue ADA 1800 calorie diet VTE precautions Update patient The patient and/or family is well informed by me about 1. Clinical impression, treatment plans, side effects of medications, course of the disease and fair prognosis 2. All patient's question/ concerns raised by patient are satisfactorily addressed by me Total time spent 45 minutes 40% of time spent interviewing the patient and physical exam 30% of time spent in gathering lab datas and imaging studies 30 % of time is spent in patient education Prognosis Fair Dietary Evaluation Review Recommendations by RD: Dietary education by RD, Decrease Calorie Intake Comments: Recommended patient intentional weight loss of 50 IBS Expected Outcomes/Goals: Goal is to avoid obesity hypoventilation and obesity related comorbidities Plan discussed with: Patient JEROME JONES MD May 10, 2025 23:39
[2025-05-11] VITALS (11 sets, daily range): BP systolic 122–142; BP diastolic 75–97; PULSE 70–87; RESP 16–18; TEMP 97.5–98.2; O2SAT 96–100
[2025-05-11 06:58] LABS: Hematocrit 41.2 % (41.0-53.0); Hemoglobin 14.0 g/dL (13.5-17.5); Mean Corpuscular Hemoglobin 26.4 pg (28.0-32.0); Mean Corpuscular Volume 77.5 fL (80.0-100.0); Nucleated Red Blood Cells % 0.1 %
[2025-05-11 07:13] LABS: Alanine Aminotransferase 22 U/L (7-40); Alkaline Phosphatase 68 U/L (46-116); Anion Gap 11 (5-15); BUN/Creatinine Ratio 15.7 (10.0-20.0); Blood Urea Nitrogen 13 mg/dL (9-23); Calcium 9.1 mg/dL (8.7-10.4); Carbon Dioxide 27 mmol/L (20-31); Chloride 101 mmol/L (98-107); Magnesium 1.8 mg/dL (1.6-2.6); Potassium 3.6 mmol/L (3.5-5.1); Sodium 139 mmol/L (136-145); Total Protein 6.9 g/dL (5.7-8.2)
[2025-05-11 07:14] LABS: Albumin 3.9 g/dL (3.2-4.8)
[2025-05-11 07:15] LABS: Bilirubin, Total 0.3 mg/dL (0.2-1.0); Glucose 143 mg/dL (74-106)
[2025-05-11] MEDS: INSULIN LANTUS (GLARGINE) 1 /0.01ml (100units/ml) SC SCH (11:23)
--- NOTE | 2025-05-11 20:34 | DVHPN2 ---
Progress Note - Dictate Date Seen: May 11, 2025 Subjective The patient seems to have recovered from signs symptoms of acute flu syndrome and acute gastroenteritis. He reports to have improvement in GI symptoms * He has been tolerating regular diet for last two days * No sign of febrile illness or respiratory congestion * Received 2D echo exam to look into etiologic cause of CHF * Recommended oral diuretics as needed Overnight events are reviewed through medical chart and case discussion with patient's assigned RN Ms. Mejias while making rounds on patient on the day of service vital signs Vital Sign Date Time Temp Pulse Resp B/P (MAP) Pulse Ox O2 Delivery O2 Flow Rate FiO2 05/11/25 16:38 98.0 72 18 122/78 (93) 96 98.0 05/11/25 10:00 Room Air* 0 21 Total Intake and Output 05/10/25 05/10/25 05/11/25 15:00 23:00 07:00 Intake Total 600 ml 500 ml Output Total 850 ml Balance 600 ml -350 ml medications Current Medications Medications Dose Ordered Sig/Alaina Route Start Time Stop Time Status Last Admin Dose Admin Nitroglycerin 0.4 mg Q5MINP PRN SL 05/08/25 18:45 Morphine Sulfate 2 mg Q30M PRN IV 05/08/25 18:45 Valsartan 160 mg DAILY@BREAKFAST PO 05/09/25 08:00 05/11/25 08:45 160 MG Metoprolol Succinate 25 mg BID PO 05/08/25 22:00 05/11/25 09:27 25 MG Atorvastatin Calcium 40 mg DAILY@DINNER PO 05/09/25 17:30 05/11/25 18:04 40 MG Aspirin 81 mg DAILY@DINNER PO 05/09/25 17:30 05/11/25 18:04 81 MG Enoxaparin Sodium 60 mg DAILY SC 05/09/25 10:00 05/11/25 09:26 60 MG Insulin Human Lispro AC SC 05/09/25 07:00 05/09/25 06:24 3 UNITS Insulin Human Lispro HS SC 05/08/25 22:00 05/10/25 21:37 4 UNITS Acetaminophen 650 mg QIDP PRN PO 05/08/25 18:45 Albuterol 2.5 mg Q6H PRN NEB 05/08/25 19:00 05/08/25 20:14 2.5 MG Ondansetron HCl 4 mg Q6HPRN PRN IV 05/09/25 00:15 05/09/25 00:40 4 MG Pantoprazole Sodium 40 mg BID@0600,1700 PO 05/09/25 06:00 05/11/25 18:04 40 MG Oxycodone/ Acetaminophen 1 tab Q6HP PRN PO 05/09/25 00:15 05/11/25 18:39 1 TAB Sodium Chloride 1,000 ml @ 30 mls/hr Q24H IV 05/09/25 21:15 05/11/25 06:20 30 MLS/HR Insulin Glargine 20 units BID SC 05/11/25 10:00 05/11/25 11:23 20 UNITS objective General appearance: Short stature, obese to husky built middle-aged male Awake alert oriented x3-in no apparent distress Head: Normocephalic nontraumatic Eyes: EOMI, TEOFILO, sclera nonicteric, conjunctive- pale ENT: Improvement in ENT congestion, NSL bilateral symmetrical, oral mucosa wet Neck: Supple, carotid upstroke +2, trachea R off midline, JVD-2 cm, C spine- Full ROM No thyroid or lymph node , no use of sternomastoid muscle Chest: Bilateral symmetrical expansions, No costochondral tenderness Lungs: clear breath sounds all over except reduced at bases No rales rhonchi CVS: PMI-2 cm lateral to L MCL in fifth ICS , S1- S2 NSR no S3 GI: Abdomen soft, obese, bowel sounds normoactive No focal tenderness, no rebound tenderness No hepatosplenomegaly, no mass no hernia , : No CVA tenderness, Para LS spine muscle tenderness present No bladder mass palpable, genitalia-NE SKIN: Turgor normal, color pink, no rash, no icterus, No varicosity, no ulcers or wounds EXTs: Puffiness +0, color pink, no rash, no ecchymosis Distal pulses +2 capillary refill <2 seconds, no open wounds JOINTS: changes of osteoarthritis present BACK: No apparent lumbosacral spinal muscle tenderness, LYMPH NODES: No cervical, axillary or inguinal lymph nodes Neuro: Awake alert oriented 4, coherent, all cognitives- intact No pronator drift, no focal motor deficit, Changes of peripheral neuropathy, DTR +2, gait steady PSYCH: Affect mixed-denies suicidal ideation laboratory and microbiology Laboratory Tests 05/11/25 06:20 Test 05/11/25 06:20 Range/Units Serum Glucose 143 H 74-106 mg/dL Problem List 1. Acute Flu syndrome................................ Improved 2. Acute gastroenteritis.............................. Improved 3. Moderately severe hypovolemia................ corrected 4. Early CHF VS fluid overload 5. Well-controlled hypertension 6. Uncontrolled NIDDM 7. Exogenous obesity in adult with current BMI> 30-35 kg/m2 Assessment/Plan Medical decision making Overall patient's general/hemodynamic condition has significantly improved Noted improvement in respiratory and GI symptoms * Denies new symptoms * No sign of febrile illness respiratory congestion * Noted progressive improvement in signs of hypoventilation at bilateral lung bases * His chest x-ray shows diminished congestion and no sign of pneumonia * Received 2D echo exam looking into etiologic cause of early congestive heart failure Results are pending at present time * Recommended patient to receive cautious oral intake of fluids and diuretics as needed * Recommended outpatient follow-up with me in next five days Treatment plans as of today Discharge patient home today Reconciled discharge medications Continue oral antibiotics x next two days Follow-up with me in next 1-5 days VTE precautions Update patient The patient and/or family is well informed by me about 1. Clinical impression, treatment plans, side effects of medications, course of the disease and fair prognosis 2. All patient's question/ concerns raised by patient are satisfactorily addressed by me Total time spent 60 minutes 40% of time spent interviewing the patient and physical exam 30% of time spent in gathering lab datas and imaging studies 30 % of time is spent in patient education Dietary Evaluation Review Recommendations by RD: Dietary education by RD, Decrease Calorie Intake Comments: Recommended intentional weight loss of 50 lb as from current body weight Through 1800 calorie ADA diet and aerobic exercises as tolerated Recommends test and a bike exercises once recovers from current illness Expected Outcomes/Goals: Goal is to avoid obesity related comorbidities such as Obesity hypoventilation, cardiac arrhythmia, embolic events, CVA, or sudden Food and Nutrition Intake (Mod: <75% est energy req 7days Food and Nutrition Intake (Sev: <50% est energy req 5days Interpretation of weight loss: up to 10% in 6 months Plan discussed with: Patient Total Time (mins): 60 JEROME JONES MD May 11, 2025 20:34
[2025-05-11] MEDS ORDERED: INSLANTI SC (20:57)
[2025-05-11] MEDS ORDERED: METO-6 PO (20:57)
[2025-05-11] MEDS ORDERED: VALS1TAB58 PO (20:57)
--- NOTE | 2025-05-11 21:03 | DVHDS2 ---
Discharge Summary Date of Admission May 08, 2025 at 18:31 Date of Discharge: May 11, 2025 Labs/Diagnostic Data: Laboratory Results Test 05/11/25 18:07 05/11/25 06:20 05/09/25 05:11 05/08/25 18:37 POC Glucose 111 mg/dl (70-106) White Blood Count 8.4 10^3/uL (4.4-10.8) Red Blood Count 5.32 10^6/uL (4.5-5.90) Hemoglobin 14.0 g/dL (13.5-17.5) Hematocrit 41.2 % (41.0-53.0) Mean Corpuscular Volume 77.5 fL (80.0-100.0) Mean Corpuscular Hemoglobin 26.4 pg (28.0-32.0) Mean Corpuscular Hemoglobin Concent 34.0 g/dL (32.0-36.0) Red Cell Distribution Width 15.1 % (11.8-14.3) Platelet Count 396 10^3/uL (140-450) Mean Platelet Volume 6.8 fL (6.9-10.8) Neutrophils (%) (Auto) 57.7 % (37.0-80.0) Lymphocytes (%) (Auto) 29.5 % (10.0-50.0) Monocytes (%) (Auto) 8.5 % (0.0-12.0) Eosinophils (%) (Auto) 3.3 % (0.0-7.0) Basophils (%) (Auto) 1.0 % (0.0-2.0) Neutrophils # (Auto) 4.8 10 ^3/uL (1.6-8.6) Lymphocytes # (Auto) 2.5 10 ^3/uL (0.4-5.4) Monocytes # (Auto) 0.7 10 ^3/uL (0-1.3) Eosinophils # (Auto) 0.3 10 ^3/uL (0-0.8) Basophils # (Auto) 0.1 10 ^3/uL (0-0.2) Nucleated Red Blood Cells 0.1 % Sodium Level 139 mmol/L (136-145) Potassium Level 3.6 mmol/L (3.5-5.1) Chloride Level 101 mmol/L (98-107) Carbon Dioxide Level 27 mmol/L (20-31) Anion Gap 11 (5-15) Blood Urea Nitrogen 13 mg/dL (9-23) Creatinine 0.83 mg/dL (0.700-1.30) Glomerular Filtration Rate Calc 98 mL/min (>90) BUN/Creatinine Ratio 15.7 (10.0-20.0) Serum Glucose 143 mg/dL (74-106) Calcium Level 9.1 mg/dL (8.7-10.4) Phosphorus Level 3.8 mg/dL (2.4-5.1) Magnesium Level 1.8 mg/dL (1.6-2.6) Total Bilirubin 0.3 mg/dL (0.2-1.0) Aspartate Amino Transferase (AST) 26 U/L (13-40) Alanine Aminotransferase (ALT) 22 U/L (7-40) Alkaline Phosphatase 68 U/L (46-116) Total Protein 6.9 g/dL (5.7-8.2) Albumin 3.9 g/dL (3.2-4.8) Hemoglobin A1c 7.4 % A1C (<5.7) Triglycerides Level 151 mg/dL (< 150) Cholesterol Level 228 mg/dL (< 200) LDL Cholesterol 168 mg/dL (< 100) HDL Cholesterol 44 mg/dL (40-59) Urine Color Yellow (Yellow) Urine Clarity Turbid (Clear) Urine pH 5.5 (5.0-9.0) Urine Specific [place] 1.030 (1.001-1.035) Urine Protein 1+ (Negative) Urine Ketones 1+ (Negative) Urine Blood Negative /uL (Negative) Urine Nitrite Negative (Negative) Urine Bilirubin Negative (Negative) Urine Urobilinogen 3 mg/dL (Negative) Urine Leukocyte Esterase Negative /uL (Negative) Urine RBC 1 /hpf (0 - 3) Urine Microscopic WBC 3 /HPF (0-3) Urine Squamous Epithelial Cells Few /hpf (<5) Urine Bacteria None seen /hpf (None Seen) Urine Hyaline Casts Mod /lpf (0 - 2) Urine Mucus Few (None Seen) Urine Glucose 2+ mg/dL (Normal) Test 05/08/25 17:26 05/08/25 17:25 Influenza Type A Antigen Negative (Negative) Influenza Type B Antigen Negative (Negative) SARS-CoV-2 Antigen (Rapid) Negative (NEGATIVE) Other Laboratory Tests 05/11/25 06:20 Final Diagnosis/Problems List 1. Flu syndrome 2. Severe Hypovolemia 3. Uncontrolled NIDDM 4. Fairly well-controlled hypertension 5. Exogenous obesity in adult with current BMI > 30-35 Kg/m2 Discharge Disposition: Home Discharge Instruct/Medications Diet: Consistent carbohydrate, Cardiac 2g Na,low cholest Diet comment: 9818-2092 calorie ADA high-protein, low-salt 2 g low saturated fat diet Activity: No Restrictions, As Tolerated Follow Up/Referral: Dr. Anne in 1-5 days Medications: Refer to discharge med rec Scheduled Amlodipine Besylate (Amlodipine Besylate), 1 TAB PO DAILY, (Reported) Aspirin (Aspir-81), 1 TAB PO DAILY, (Reported) Glyburide (Micronase), 1 TAB PO BID, (Reported) Insulin Glargine (Lantus), 20 UNITS SC BID Metoprolol Succinate (Metoprolol Succinate Er), 1 TAB PO DAILY, (Reported) Metoprolol Succinate (Toprol Xl), 25 MG PO BID Valsartan (Valsartan), 160 MG PO DAILY Miscellaneous Medications Calcium Carbonate (Calcium), 600 MG PO, (Reported) Insulin Lispro (Human) (Humalog), 100 UNIT SC, (Reported) Oxycodone Hcl (Oxycodone Hcl), 5 MG GT, (Reported) Discharge Statement: "Patient was advised to return to the ER or call 911 if any headaches, dizziness, shortness of breath, chest pain, abdominal pain, bleeding, fevers, or worsening of medical condition. Patient was counseled about treatment plan, medications, possible side effects, patientverbalized understanding. All questions were answered to the best of my ability. This discharge took greater then 30 minutes in planning, reviewing documentation, counseling the patient, and discussing with other team members." ASSESSMENT ASSESSMENT Assessment 1. Flu syndrome 2. Severe Hypovolemia 3. Uncontrolled NIDDM 4. Fairly well-controlled hypertension 5. Exogenous obesity in adult with current BMI > 30-35 Kg/m2 JEROME ANNE MD May 11, 2025 21:03
[2025-05-11] MEDS ORDERED: PSEU30TA3 PO (21:07)
[2025-05-11] MEDS ORDERED: CEFA-122 PO (21:09)
[2025-05-11] MEDS ORDERED: ASCO500T11 PO (21:11)
--- NOTE | 2025-05-12 10:06 | DVHSR ---
APPROVED REPORT EXAM: Two-dimensional and M-mode echocardiogram with Doppler and color Doppler. Blood Pressure: 142/88 mmHg INDICATION Dyspnea Rule out CHF Surgery/Intervention CABG: RISK FACTORS Height: 65, Weight: 199 DIMENSIONS LVDd 4.1 (3.8-5.7cm) LA (2D) 3.8 (1.9-4.0cm) Aortic Root 4.0 (2.0-3.7cm) LVDs 2.9 (2.5-4.0cm) LA (MM) (1.9-4.0cm) Aortic Cusp Exc 1.5 (1.5-2.0cm) EF (%) 55.0 (55-70%) Rt. Atrium 5.0 (1.9-4.0cm) Asc. Aorta cm Mitral Valve Mitral Mitral Stenosis E wave 0.96m/s MV Mean GR. mmHg A wave 0.86m/s MV Peak GR. mmHg E/A ratio 1.1 2D MVA cm2 DECEL Time 239ms PRESS 1/2 Time ms Aortic Valve Aortic Valve Aortic Stenosis V1 0.73m/s AO Mean GR. 5mmHg V2 1.52m/s AO Peak GR. 9mmHg LVOT Diameter 2.1 (1.8-2.4cm) Doppler JANET 1.66cm2 Pulmonic Valve V2 0.90m/s Tricuspid Valve TR Velocity 2.34m/s RVSP 27mmHg Other Information Quality : Technically Limited Rhythm : Conclusion LVEF is normal at 50-55%. Mild diastolic dysfunction Right ventricle is moderately dilated with normal function Right atrium is moderately dilated Aortic valve not well visualized, appears mildly calcified but opens well
--- NOTE | 2025-05-12 11:41 | ECG ---
[facility] Test Date: 2025-05-08 Test Time: 16:06:44 Pat Name: RICCARDO ROOT Department: Room: [facility]4T B Gender: M Surveillance Operator: CAIN : 1960 Requested By: TING RODRIGES Order Number: [id number] Reading MD: Clayton Clemens Measurements Intervals [place] Rate: 89 P: 64 MT: 160 QRS: 157 QRSD: 91 T: 74 QT: 375 QTc: 457 Interpretive Statements Sinus rhythm Probable right ventricular hypertrophy Electronically Signed On 05-18-2025 18:36:25 PST by Clayton Clemens Please click the below link to view image of tracing.
== END 2025-05-11 21:45 | disposition left against medical advice (07) | DRG 249 ==
LOC: ER 15:53 → OVERFLOW 18:31 → TELE-WESTW 18:33
PROVIDERS: ADMIT Specialist; ATTEND Specialist
DX: K52.9 Noninfective gastroenteritis and colitis, unspecified (principal); E11.9 Type 2 diabetes mellitus without complications; J10.2 Influenza due to other identified influenza virus with gastrointestinal manifestations; F11.20 Opioid dependence, uncomplicated; Z68.30 Body mass index [BMI] 30.0-30.9, adult; I10 Essential (primary) hypertension; Z20.822 Contact with and (suspected) exposure to COVID-19; E86.1 Hypovolemia; G89.29 Other chronic pain; E66.09 Other obesity due to excess calories; M54.9 Dorsalgia, unspecified; E87.70 Fluid overload, unspecified; I25.10 Atherosclerotic heart disease of native coronary artery without angina pectoris; E78.5 Hyperlipidemia, unspecified; Z95.1 Presence of aortocoronary bypass graft; Z90.49 Acquired absence of other specified parts of digestive tract; Z79.84 Long term (current) use of oral hypoglycemic drugs; Z53.29 Procedure and treatment not carried out because of patient's decision for other reasons
CPT/HCPCS: 36415; 71045; 80048; 80053; 80061; 81001; 82962; 83036; 83735; 84100; 85025; 87040; 87086; 87426; 87804; 93005; 93306; 94640; G0378; J1815; J2405